=== PATIENT | female | born 1970 | race Caucasian/White ===

== ENCOUNTER 2017-01-27 12:46 | Emergency (ER) | payer OTHER | END 2017-01-27 14:00 | disposition home or self-care (01) | LOC: CFTX 12:46 → CED 12:46 → CFTX 13:46 | DX: H60.92 Unspecified otitis externa, left ear (principal); F17.200 Nicotine dependence, unspecified, uncomplicated; Z86.19 Personal history of other infectious and parasitic diseases; Z88.5 Allergy status to narcotic agent | CPT/HCPCS: 99282 ==

== ENCOUNTER 2017-01-29 12:43 | Emergency (ER) | payer OTHER | END 2017-01-29 13:50 | disposition home or self-care (01) | LOC: CED 12:43 → CFTX 12:43 | DX: H60.92 Unspecified otitis externa, left ear (principal); F17.210 Nicotine dependence, cigarettes, uncomplicated; Z88.5 Allergy status to narcotic agent | CPT/HCPCS: 99282 ==